=== PATIENT | male | born 1970 | race Caucasian/White ===

== ENCOUNTER 2022-03-14 10:29 | Emergency (ER) | payer BC ==
[2022-03-14] MEDS ORDERED: fentaNYL 100 MCG/2 ML SDV IVPUSH ONE (10:34)
[2022-03-14] MEDS ORDERED: fentaNYL 100 MCG/2 ML SDV ONE (10:46)
[2022-03-14] MEDS ORDERED: Ibuprofen 400 MG Tab PO ONE (10:48)
[2022-03-14] MEDS ORDERED: Acetaminophen 325 MG Tab PO ONE (10:48)
== END 2022-03-14 12:30 | disposition home or self-care (01) ==
LOC: MW.ED 10:29
DX: S83.005A Unspecified dislocation of left patella, initial encounter (principal); X50.1XXA Overexertion from prolonged static or awkward postures, initial encounter
CPT/HCPCS: 27560; 73560; 96374; 99283; J3010